=== PATIENT | female | born 1990 | race Caucasian/White ===

== ENCOUNTER → 2021-02-18 | Outpatient (CLI) | payer OTHER | LOC: COL.RAD 08:32 | DX: G35 Multiple sclerosis (principal) | CPT/HCPCS: A9585 ==

== ENCOUNTER → 2021-02-19 | Outpatient (CLI) | payer OTHER | LOC: COL.RAD 12:16 | DX: G35 Multiple sclerosis (principal) | CPT/HCPCS: A9585 ==

== ENCOUNTER 2023-12-24 09:27 | Inpatient (IN) | payer OTHER ==
[2023-12-24] VITALS (29 sets, daily range): BP systolic 112–155; BP diastolic 59–90; PULSE 85–105; TEMP 97.9–98.3
[~2023-12-24] VITALS: Ht 162.6 cm; Wt 96.4 kg
[~2023-12-24 09:27] MED LIST: LR & Oxytocin 500 ML IV SCH; LR 1,000 ML IV SCH; Penicillin G Potassium 5,000,000 UNITS in NS 100 ML IV ONE
[2023-12-24] MEDS ORDERED: Penicillin G Potassium 2,500,000 UNITS in NS 100 ML IV SCH ×2 (10:15→16:10)
[2023-12-24] MEDS ORDERED: Penicillin G Potassium 5,000,000 UNITS in NS 100 ML IV ONE (12:15)
--- NOTE | 2023-12-24 12:15 | NUR ---
1215PT AMBULATORY TO UNIT WITH SPOUSE. PT CHANGED INTO GOWN. PT COMFORTABLE IN BED. 1220THIS RN AT BEDSIDE TO PLACE TOCO AND EFM. EFM TRACING CAT I. PT VITAL SIGNS STABLE. 1225PT STATES FEELING POSITIVE MOVEMENT. PT STATES FEELING THE OCCASIONAL CTX BUT NO REGULAR PATTERN. PT DENIES LOF AND DENIES VAGINAL BLEEDING. THIS RN DISCUSSES POC WITH PT. PT VERBALIZES UNDERSTANDING. 1235IV STARTED AND LABS DRAWN.
--- NOTE | 2023-12-24 13:10 | NUR ---
Pen g 5 million units iv started as ordered and per protocol.
[2023-12-24 13:19] LABS: BASO % 0.3 % (0.0-2.0); EOS # 0.1 K/mm3 (0.0-0.7); EOS % 0.6 % (0.0-4.0); GRAN # 5.6 K/mm3 (1.4-6.5); GRAN % 70.1 % (42.2-75.2); HEMATOCRIT 36.5 % (37.0-47.0); LYMPH # 1.7 K/mm3 (1.2-3.4); LYMPH % 21.7 % (20.0-51.0); MEAN CELL VOLUME 90 fl (80.0-100.0); MEAN CORPUSCULAR HEMOGLOBIN 32 pg (27-31); MEAN CORPUSCULAR HGB CONC 36 g/dl (33.0-37.0); MEAN PLATELET VOLUME 10.8 fl (7.4-10.4); MONO # 0.5 K/mm3 (0.1-0.6); MONO % 6.8 % (1.7-9.3); PLATELET COUNT 171 K/mm3 (130-400); RED BLOOD COUNT 4.05 M/mm3 (4.10-5.30); REDCELL DISTRIBUTION WIDTH-CV 12.5 % (11.5-14.5)
[2023-12-24] MEDS ORDERED: PRENATAL TABLET PO (14:32)
--- NOTE | 2023-12-24 15:15 | NUR ---
1515PT SPOUSE CAME OUT TO NURSES DESK STATING PTS WATER BROKE. THIS RN AT BEDSIDE TO ASSESS. LARGE AMOUNT OF AMNIOTIC FLUID VISUAL. SROM NOTED AT THIS TIME.
--- NOTE | 2023-12-24 15:30 | NUR ---
SVE AT THIS TIME BY THIS RN. 6-/-2. PT TOLERATED WELL.
[2023-12-24] MEDS ORDERED: ROPivacaine PF 0.2% 200 ML IV ONE (15:52)
--- NOTE | 2023-12-24 16:04 | NUR ---
1530PT REQUEST FOR EPIDURAL. 1532TODD CAR RENTAL SERVICE ATTENDANT NOTIFIED OF PT REQUEST. 1550TODD ON UNIT. PT UP TO SITTING ON SIDE OF BED. PULSE OX PLACED. PT VITAL SIGNS STABLE. 1552TODD [employer] RENTAL SERVICE ATTENDANT AT BEDSIDE. DISCUSSES POC WITH PT. PT VERBALIZES AGREEMENT. 1604TEST DOSE ADMINISTERED AT THIS TIME PER ROSANNA CASTAÑEDA. PT TOLERATED WELL. 1605SECOND BAG OF IVF STARTED. 1610PT POSITIONED TO WEDGE LEFT. PT COMFORTABLE. PT VITAL SIGNS STABLE. THIS RN REMAINS AT BEDSIDE.
[2023-12-24] MEDS ORDERED: Naloxone 0.4 MG/ML VIAL IV PRN ×2 (16:30→19:00)
[2023-12-24] MEDS ORDERED: ePHEDrine 50 MG/10 ML VIAL IV PRN (16:30)
[2023-12-24] MEDS ORDERED: diphenhydrAMINE 25 MG CAP PO PRN (16:30)
[2023-12-24] MEDS ORDERED: diphenhydrAMINE 50 MG/ML 1 ML VIAL IV PRN (16:30)
[2023-12-24] MEDS ORDERED: Ondansetron 4 MG/2 ML VIAL IV PRN (16:30)
--- NOTE | 2023-12-24 16:30 | NUR ---
LIZZIEE AT THIS TIME PER THIS RN WITH A SECOND CHECK BY BETH MIKE. /.
--- NOTE | 2023-12-24 17:56 | NUR ---
1638THIBaljeet RN, RAMSEY RN, TOMAS RN AT BEDSIDE. 1642SVE BY RAMSEY RN AT THIS TIME. 10/100/0. PROLONGED DECEL NOTED. PT REPOSITIONED. FLUID BOLUS STARTED. DR VELAZQUEZ NOTIFIED. 1643PITOCIN SHUT OFF 1645DR VELAZQUEZ AT BEDSIDE. BETH RN/NURSERY AT BEDSIDE. 1647DECEL RESOLVED. ROOM AND PT SET UP FOR DELIVERY. 1650STRAIGHT CATH AT THIS TIME PER DR VELAZQUEZ. 1652THIBaljeet RN AND DR VELAZQUEZ BEGAN PUSHING WITH PT AT THIS TIME. GOOD MATERNAL EFFORT NOTED. 1723PIT 2 STARTED AT THIS PER ORDER OF DR VELAZQUEZ. 1755PER DR VELAZQUEZ MILD SHOULDER DYSTOCHIA NOTED. BED POSITIONED FLAT. THIS RN AND BETH RN PERFORMED ROSEMARY MANEUVER 1756SVD OF VIABLE FEMALE PER DR VELAZQUEZ. INFANT PLACED ON MATERNAL ABDOMEN. CARE ASSUMED BY NURSERY. 1759SVD OF PLACENTA PER DR VELAZQUEZ. SECOND DEGREE PERINEAL LACERATION NOTED. REPAIR STARTED AT THIS TIME. 1805REPAIR FINISHED PER DR VELAZQUEZ. PT TOLERATED WELL. FUNDUS FIRM AT U. LOCHIA WNL. PT VITAL SIGNS STABLE. 1807PT REPOSITIONED AND COMFORTABLE IN BED. PERICARE PERFORMED. CHUX PAD CHANGED. ICE PACK PLACED ON PERINEUM.
[2023-12-24] MEDS ORDERED: Magnes Hydrox (MOM) 80 MG/ML 30 ML CUP PO PRN (18:15)
[2023-12-24] MEDS ORDERED: Loratadine 10 MG TAB PO PRN (18:15)
[2023-12-24] MEDS ORDERED: Methylergonovine 0.2 MG/ML 1 ML AMPUL IM ONE (18:45)
[2023-12-24] MEDS ORDERED: Witch Hazel 50% Pads Bulk TUB TP PRN (19:00)
[2023-12-24] MEDS ORDERED: Acetaminophen 500 MG TAB PO SCH (19:00)
[2023-12-24] MEDS ORDERED: Measles/Mumps/Rubella Virus Vaccine Live w Diluent 0.5 ML VIAL SQ SCH (19:00)
[2023-12-24] MEDS ORDERED: Ibuprofen 600 MG TAB PO SCH (19:00)
[2023-12-24] MEDS ORDERED: oxyCODONE 5 MG TAB PO PRN (19:00)
[2023-12-24] MEDS ORDERED: Phenylephrine/Mineral Oil/Petrolatum 57 GM TUBE RC PRN (19:00)
[2023-12-24] MEDS ORDERED: Mag/Al Hydrox/Simeth Susp 30 ML CUP PO PRN (19:00)
[2023-12-24] MEDS ORDERED: Tranexamic Acid 1,000 MG in NS 100 ML IV ONE (19:00)
--- NOTE | 2023-12-24 19:45 | NUR ---
Assisted up to bathroom at this time, as noted, fundus firm, 2 above U. Patient attempts to spontaneously void, unsuccessful. Straight cathed by this medical technical writer in sterile fashion upon return from bathroom. Following straight cath of 650 mL urine return, fundus firm @ U. Transferred to room 207. Ambulatory, steady gait noted. Denies any lightheadedness or nausea.
[2023-12-24] MEDS ORDERED: traZODone 50 MG TAB PO PRN (21:00)
[2023-12-25 01:29] VITALS: BP 113/80; PULSE 90; TEMP 98.1
[2023-12-25 04:42] LABS: HEMOGLOBIN 11.7 g/dl (12.5-16.0)
[2023-12-25 04:47] LABS: HEMATOCRIT 32.7 % (37.0-47.0)
[2023-12-25 05:30] VITALS: BP 114/76; PULSE 86; TEMP 97.7
[2023-12-25] MEDS ORDERED: Sennosides/Docusate 8.6-50 MG TAB PO SCH (08:00)
[2023-12-25] MEDS ORDERED: Prenatal Vitamins/Iron/FA TAB PO SCH (09:00)
[2023-12-25 09:04] VITALS: BP 120/75; PULSE 86; TEMP 98.5
[2023-12-25 17:13] VITALS: BP 128/87; PULSE 76; TEMP 98.7
[2023-12-25 20:00] VITALS: BP 122/72; PULSE 82; TEMP 98.3
[2023-12-25] MEDS ORDERED: Acetaminophen 500 MG TAB PO SCH (20:00)
[2023-12-25] MEDS ORDERED: Ibuprofen 600 MG TAB PO SCH (20:00)
[2023-12-26 08:36] VITALS: BP 127/74; PULSE 81; TEMP 97.8
== END 2023-12-26 11:20 | disposition home or self-care (01) | DRG 807 ==
LOC: OB 09:27 → LDR 12:07 → OB 20:00
PROVIDERS: ADMIT Obstetrics & Gynecology
PROC: 10E0XZZ Delivery of Products of Conception, External Approach (ICD-10-PCS; principal; 2023-12-24)
PROC: 0KQM0ZZ Repair Perineum Muscle, Open Approach (ICD-10-PCS; 2023-12-24)
PROC: 3E033VJ Introduction of Other Hormone into Peripheral Vein, Percutaneous Approach (ICD-10-PCS; 2023-12-24)
DX: O36.63X0 Maternal care for excessive fetal growth, third trimester, not applicable or unspecified (principal); Z37.0 Single live birth; O99.824 Streptococcus B carrier state complicating childbirth; O70.1 Second degree perineal laceration during delivery; O66.0 Obstructed labor due to shoulder dystocia; Z3A.39 39 weeks gestation of pregnancy
CPT/HCPCS: J2210; J2540; J2590; J2795; J7120